=== PATIENT | female | born 1975 | race Asian ===

== ENCOUNTER 2016-10-28 08:57 | Outpatient (CLI) | payer OTHER | END 2016-10-28 19:07 | disposition home or self-care (01) | LOC: MAMMO 08:57 | DX: Z12.31 Encounter for screening mammogram for malignant neoplasm of breast (principal) | CPT/HCPCS: G0202-TC ==

== ENCOUNTER 2017-04-13 20:44 | Emergency (ER) | payer OTHER ==
[~2017-04-13] VITALS: Ht 154.9 cm; Wt 80.7 kg
[2017-04-13 20:50] VITALS: BP 152/86; TEMP 98.1
[2017-04-13] MEDS ORDERED: AMLO2.5T PO (20:56)
[2017-04-13] MEDS ORDERED: FLUOXETINE20 MG PO (20:56)
[2017-04-13] MEDS ORDERED: OMEPRAZOLE20 M1 PO (20:57)
== END 2017-04-13 22:41 | disposition home or self-care (01) ==
LOC: ED 20:44
DX: M79.602 Pain in left arm (principal)
CPT/HCPCS: 99281

== ENCOUNTER 2018-02-16 10:44 | Outpatient (CLI) | payer OTHER ==
[~2018-02-16 10:44] MED LIST: AMLO2.5T PO; FLUOXETINE20 MG PO; OMEPRAZOLE20 M1 PO
== END 2018-02-16 19:46 | disposition home or self-care (01) ==
LOC: MAMMO 10:44
DX: Z12.31 Encounter for screening mammogram for malignant neoplasm of breast (principal)

== ENCOUNTER 2019-09-06 08:53 | Outpatient (CLI) | payer OTHER | END 2019-09-06 19:35 | disposition home or self-care (01) | LOC: MAMMO 08:53 → RAD 08:53 → MAMMO 19:35 | DX: Z12.31 Encounter for screening mammogram for malignant neoplasm of breast (principal) ==

== ENCOUNTER 2020-04-14 15:43 | Outpatient (CLI) | payer BC | END 2020-04-14 20:00 | disposition home or self-care (01) | LOC: RAD 15:43 | DX: Z86.19 Personal history of other infectious and parasitic diseases (principal) ==

== ENCOUNTER 2020-09-25 09:54 | Outpatient (CLI) | payer BC | END 2020-09-25 21:15 | disposition home or self-care (01) | LOC: MAMMO 09:54 | PROVIDERS: ATTEND Nurse Practitioner Family | DX: Z12.31 Encounter for screening mammogram for malignant neoplasm of breast (principal) ==

== ENCOUNTER 2021-04-02 10:46 | Emergency (ER) | payer BC ==
[~2021-04-02] VITALS: Ht 154.9 cm; Wt 88.0 kg
[2021-04-02 12:45] VITALS: BP 161/92; TEMP 98
== END 2021-04-02 12:45 | disposition home or self-care (01) ==
LOC: ED 10:46
DX: S16.1XXA Strain of muscle, fascia and tendon at neck level, initial encounter (principal); S39.012A Strain of muscle, fascia and tendon of lower back, initial encounter; W24.0XXA Contact with lifting devices, not elsewhere classified, initial encounter; W18.39XA Other fall on same level, initial encounter; Y92.512 Supermarket, store or market as the place of occurrence of the external cause
CPT/HCPCS: 99283

== ENCOUNTER 2021-09-20 09:54 | Emergency (ER) | payer BC ==
[~2021-09-20] VITALS: Ht 154.9 cm; Wt 88.0 kg
[2021-09-20 10:00] VITALS: TEMP 98.9
[2021-09-20 10:34] LABS: PLATELET COUNT 385 K/uL (152-353)
[2021-09-20 10:41] VITALS: BP 134/65
[2021-09-20 10:43] LABS: POTASSIUM 3.4 mmol/L (3.6-5.2)
[2021-09-20 10:52] LABS: PARTIAL THROMBOPLASTIN TIME 25.9 SECONDS (24.5-33.6)
== END 2021-09-20 11:20 | disposition home or self-care (01) ==
LOC: ED 09:54
PROVIDERS: Hospitalist
DX: I16.0 Hypertensive urgency (principal); R07.89 Other chest pain
CPT/HCPCS: 80053; 82550; 83880; 84484; 85027; 85610; 85730; 93005; 99283

== ENCOUNTER 2021-12-31 14:02 | Outpatient (CLI) | payer BC | END 2021-12-31 20:29 | disposition home or self-care (01) | LOC: MAMMO 14:02 | PROVIDERS: ATTEND Obstetrics & Gynecology | DX: Z12.31 Encounter for screening mammogram for malignant neoplasm of breast (principal) ==

== ENCOUNTER 2023-04-28 10:06 | Outpatient (CLI) | payer OTHER | END 2023-04-28 19:00 | disposition home or self-care (01) | LOC: MAMMO 10:06 | PROVIDERS: ATTEND Nurse Practitioner Family | DX: Z12.31 Encounter for screening mammogram for malignant neoplasm of breast (principal) ==